=== PATIENT | female | born 1970 | race Caucasian/White ===

== ENCOUNTER 2019-11-25 09:00 | Day surgery (SDC) | payer OTHER ==
[~2019-11-25] VITALS: Ht 162.6 cm; Wt 132.0 kg
[~2019-11-25 09:00] MED LIST: CHOL500050 PO; VITAMIN D PO
[2019-11-25] MEDS ORDERED: LACTATED RINGERS 1,000 ML IV SCH ×2 (09:22→12:32)
[2019-11-25] MEDS ORDERED: CHLORHEXIDINE 15 ML UDC MM ONE (09:30)
[2019-11-25] MEDS ORDERED: albuterol INH (09:31)
[2019-11-25] MEDS ORDERED: vitamin e PO (09:31)
[2019-11-25] MEDS ORDERED: vitamin b PO (09:31)
[2019-11-25] MEDS ORDERED: LOSA25TA12 PO (09:31)
[2019-11-25 09:33] VITALS: BP 166/98
[2019-11-25] MEDS ORDERED: BUPIVACAINE/PF 0.25% ONE (10:27)
[2019-11-25] MEDS ORDERED: EPINEPHRINE 1 MG/ML, 1ML ONE (10:27)
[2019-11-25 10:31] LABS: ALANINE AMINOTRANSFERASE 42 U/L (12-78); ALBUMIN 3.6 g/dL (3.4-5.0); ANION GAP 7 mmol/L (5-15); CALCIUM 8.9 mg/dL (8.5-10.1); CHLORIDE 96 mmol/L (98-107)
[2019-11-25 10:32] LABS: HCG UR SG 1.013 (1.003-1.030)
[2019-11-25 10:33] LABS: ALKALINE PHOSPHATASE 61 U/L (45-117); BILIRUBIN,TOTAL 1.4 mg/dL (0.2-1.0); TOTAL PROTEIN 7.4 g/dL (6.4-8.2)
[2019-11-25] MEDS ORDERED: FENTANYL PF 250 MCG/5ML ONE (10:36)
[2019-11-25] MEDS ORDERED: MIDAZOLAM 1 MG/ML, 2ML ONE (10:36)
[2019-11-25] MEDS ORDERED: ROCURONIUM 10 MG/ML,10ML ONE (10:43)
[2019-11-25] MEDS ORDERED: INDIGO CARMINE 0.8%, 5ML ONE (10:43)
[2019-11-25] MEDS ORDERED: NEOSTIGMINE 1 MG/ML, 10ML ONE (10:43)
[2019-11-25] MEDS ORDERED: DEXAMETHASONE 4 MG/ML, 1ML ONE ×3 (10:43→11:28)
[2019-11-25] MEDS ORDERED: KETOROLAC 30 MG/1 ML ONE ×2 (10:43→11:27)
[2019-11-25] MEDS ORDERED: GLYCOPYRROLATE 0.4 MG/2 ML, 2ML ONE (10:43)
[2019-11-25] MEDS ORDERED: CEFAZOLIN PMX 2GM/50ML IVPB ONE (10:43)
[2019-11-25] MEDS ORDERED: ONDANSETRON 2MG/ML, 2ML ONE ×2 (10:43→11:27)
[2019-11-25] MEDS ORDERED: MIDAZOLAM 1 MG/ML, 5ML ONE (10:43)
[2019-11-25] MEDS ORDERED: PROPOFOL 10 MG/ML, 100ML IV ONE (10:43)
[2019-11-25] MEDS ORDERED: PROPOFOL 10 MG/ML, 20ML ONE (11:27)
[2019-11-25] MEDS ORDERED: ROCURONIUM 10MG/ML,5ML ONE ×2 (11:27)
[2019-11-25] MEDS ORDERED: CEFAZOLIN 1,000 MG ONE ×2 (11:27)
[2019-11-25] MEDS ORDERED: LIDOCAINE-MPF 2% ,5ML ONE (11:28)
[2019-11-25] MEDS ORDERED: PROMETHAZINE 25 MG/ML, 1ML IVPush PRN (11:30)
[2019-11-25] MEDS ORDERED: DIAZEPAM 5 MG/ML, 2ML IVPush PRN (11:30)
[2019-11-25] MEDS ORDERED: MEPERIDINE/PF 25MG/0.5ML IVPush PRN (11:30)
[2019-11-25] MEDS ORDERED: ONDANSETRON 2MG/ML, 2ML IVPush PRN ×2 (11:30→13:00)
[2019-11-25] MEDS ORDERED: hydrALAzine 20 MG/ML, 1ML IV PRN (11:30)
[2019-11-25] MEDS ORDERED: HYDROmorphone 1 MG/ML, 1ML INJ IVPush PRN (11:30)
[2019-11-25] MEDS ORDERED: DIPHENHYDRAMINE 50 MG/ML, 1ML IVPush PRN (11:30)
[2019-11-25] MEDS ORDERED: ACETAMINOPHEN 325 MG TABLET PO PRN (11:30)
[2019-11-25] MEDS ORDERED: OXYcodone 5 MG/5 ML ORAL.SOL UDC PO PRN (11:30)
[2019-11-25] MEDS ORDERED: LABETALOL 5MG/ML, 20ML IV PRN (11:30)
[2019-11-25] MEDS: FENTANYL PF 100 MCG/2ML IV PRN ×3 (12:39→13:07)
[2019-11-25] MEDS ORDERED: ACETAMINOPHEN 650 MG/20.3 ML UDC ONE (12:45)
[2019-11-25] MEDS ORDERED: FENTANYL PF 100 MCG/2ML ONE ×2 (12:45→13:05)
[2019-11-25] MEDS ORDERED: OXYcodone 5 MG/5 ML ORAL.SOL UDC ONE (12:46)
[2019-11-25] MEDS ORDERED: OXYcodone/APAP 5/325MG TABLET PO PRN (13:00)
[2019-11-25] MEDS ORDERED: IBUPROFEN 600 MG TABLET PO PRN (13:00)
[2019-11-25] MEDS ORDERED: PROMETHAZINE 25 MG SUPP PR ONE (13:00)
== END 2019-11-25 18:55 | disposition home or self-care (01) ==
LOC: OUT 09:00
PROVIDERS: ATTEND Obstetrics & Gynecology Female Pelvic Medicine and Reconstructive Surgery
DX: D25.9 Leiomyoma of uterus, unspecified (principal); Z11.59 Encounter for screening for other viral diseases; N92.0 Excessive and frequent menstruation with regular cycle; N94.6 Dysmenorrhea, unspecified; N80.0 Endometriosis of uterus; R10.2 Pelvic and perineal pain; E66.01 Morbid (severe) obesity due to excess calories; I10 Essential (primary) hypertension; D64.9 Anemia, unspecified; M19.90 Unspecified osteoarthritis, unspecified site; Z79.899 Other long term (current) drug therapy; Z87.891 Personal history of nicotine dependence; Z88.0 Allergy status to penicillin; Z91.048 Other nonmedicinal substance allergy status; Z98.890 Other specified postprocedural states; Z80.49 Family history of malignant neoplasm of other genital organs
CPT/HCPCS: 36415; 58552; 80053; 81025; 87635; 88307; J0171; J0690; J1100; J1170; J1885; J2250; J2405; J2704; J2710; J3010; J3490; J7120; S2900